=== PATIENT | female | born 1950 | race Caucasian/White ===

== ENCOUNTER 2018-05-21 18:14 | Observation (INO) | payer MEDICARE ==
[~2018-05-21] VITALS: Ht 154.9 cm; Wt 74.8 kg
[~2018-05-21 18:14] MED LIST: ALBUTEROL0.09 MG/A1 IH; CALCIUM CARBON500 M1 PO; CENTRUM SILVER1 TA1 PO; LEVEMIR SQ; METOPROLOL SUCC25 MG PO; MICARDIS 40MG40 MG PO; NOVOLOG100 U/ML IV; PLAQUENIL PO; SALSALATE PO; XALANTAN; ZOCOR80 MG PO
[2018-05-21 18:17] VITALS: BP 198/51; PULSE 77; TEMP 98.3
[2018-05-21] MEDS ORDERED: NOVOLOG FLEX100 U/ML SQ (18:24)
[2018-05-21] MEDS ORDERED: TESSALON P100 MG/CAP PO (18:25)
[2018-05-21] MEDS ORDERED: MIRALAX PA17 GM/Dose PO (18:26)
[2018-05-21] MEDS ORDERED: OCUVITE1 TA1 PO (18:26)
[2018-05-21] MEDS ORDERED: OMEGA-3 1000 MG1 CAP PO (18:27)
[2018-05-21] MEDS ORDERED: ASPERCREME1 EACH TP (18:27)
[2018-05-21] MEDS ORDERED: ANECREAM TOP (18:27)
[2018-05-21] MEDS ORDERED: TYLENOL 325MG325 MG PO (18:27)
[2018-05-21] MEDS ORDERED: RESTASIS MULTI5.5 ML OP (18:28)
[2018-05-21] MEDS ORDERED: PLAQUENIL 200M200 MG PO (18:28)
[2018-05-21] MEDS ORDERED: REFRESH TEARS 330 ML OP (18:28)
[2018-05-21] MEDS ORDERED: ASPIRIN 81M81 MG/TA2 PO (18:29)
[2018-05-21] MEDS ORDERED: VITAMIN E1000 U/CAP PO ×2 (18:29→18:30)
--- NOTE | 2018-05-21 18:30 | NUR ---
Pt arrived to medical from [facility]. Alert and oriented. States she had dialysis this morning and felt like her blood sugar was "low" and passed out. Per report from ED, blood sugar was actually elevated. Medications updated, pt unsure of some doses. Denies further needs. Will continue to monitor. IVET Quezada, notified of arrival.
--- NOTE | 2018-05-21 19:06 | NUR ---
Report given to ENOCH Kaplan. Pt resting in bed; Dr. Cardona at bedside.
[2018-05-21 20:26] VITALS: BP 181/57; PULSE 77; TEMP 97.9
--- NOTE | 2018-05-21 21:41 | NUR ---
Pt resting in bed, shift assessments complete, left Pt call light in reach, bed in lowest position.
[2018-05-21 22:06] LABS: PARTIAL THROMBOPLASTIN TIME 34.6 SECONDS (26.0-37.0)
[2018-05-22 00:12] VITALS: BP 140/53; PULSE 70; TEMP 97.6
[2018-05-22 04:38] VITALS: BP 162/67; PULSE 71; TEMP 97.9
[2018-05-22 07:13] LABS: BASO % 0.5 % (0.0-2.0); GRAN # 5.3 (1.4-6.5); GRAN % 82.6 % (42.2-75.2); LYMPH # 0.6 (1.2-3.4); LYMPH % 8.6 % (20.0-51.0); MEAN CELL VOLUME 100 fl (80.0-100.0); MEAN CORPUSCULAR HGB CONC 32 g/dl (33.0-37.0); MEAN PLATELET VOLUME 12.1 fl (7.4-10.4); MONO # 0.5 (0.1-0.6); MONO % 7.5 % (1.7-9.3); PLATELET COUNT 136 K/mm3 (130-400); RED BLOOD COUNT 2.97 M/mm3 (4.10-5.30); REDCELL DISTRIBUTION WIDTH-CV 16.4 % (11.5-14.5)
[2018-05-22 07:14] LABS: HEMATOCRIT 29.6 % (37.0-47.0); HEMOGLOBIN 9.6 g/dl (12.5-16.0); MEAN CORPUSCULAR HEMOGLOBIN 32 pg (27.0-31.0)
[2018-05-22 07:23] LABS: ALBUMIN 3.6 gm/dL (3.5-5.0); CALCIUM 8.1 mg/dL (8.4-10.2); POTASSIUM 4.1 mmol/L (3.4-5.0)
--- NOTE | 2018-05-22 07:23 | NUR ---
Pt slept well during the night, she has had no C/O pain during the shift. VS have been stable.
[2018-05-22 07:28] LABS: CREATININE, serum 5.1 mg/dL (0.52-1.25)
--- NOTE | 2018-05-22 08:45 | NUR ---
Patient taken to dialysis via wc. Heparin dose adjusted per hep xa resluts. Lab re-ordered for 1400.
[2018-05-22 12:40] VITALS: BP 153/70; PULSE 75; TEMP 97.9
--- NOTE | 2018-05-22 14:42 | NUR ---
RA SPO2 85% PLACED PT ON 1 LPM NC 93%
--- NOTE | 2018-05-22 15:24 | NUR ---
SW met with patient and to discuss discharge planning. Patient lives in [place] with her , Rolando. Patients PCP Is [facility] but also follows Dr Naveed Freitas in [place]. Patient is a retired teacher. She uses a walker for Ambulation. SW will continue to follow to assist in any discharge needs that may arise.
[2018-05-22 15:41] VITALS: BP 187/56; PULSE 80; TEMP 98.3
[2018-05-22 21:10] VITALS: BP 181/69; PULSE 83; TEMP 98.4
--- NOTE | 2018-05-22 21:33 | NUR ---
Pt resting in bed, has active blededing fron her fistula, reinforced with 2X2 gauze and paper applying traction to place presure on sites, shift assessment complete, no significant findings.
[2018-05-22 23:50] VITALS: BP 139/63; PULSE 86; TEMP 98.1
[2018-05-23 03:21] VITALS: BP 130/94; PULSE 85; TEMP 98.1
--- NOTE | 2018-05-23 05:23 | NUR ---
Pt bdid not sleep well during the night, her fistula was bleeding during the shift, applied 2X2 gauze and tape, applied traction with the tape to maintain pressure at the puncture site, after the midnight HEP Xa the infusion was reduced to 5.9ml/hr per protocol. No C/O pain, VS have remained stable during the shift.
[2018-05-23 06:38] LABS: MEAN CELL VOLUME 102 fl (80.0-100.0); MEAN CORPUSCULAR HGB CONC 32 g/dl (33.0-37.0); MEAN PLATELET VOLUME 12.3 fl (7.4-10.4); PLATELET COUNT 125 K/mm3 (130-400); RED BLOOD COUNT 2.63 M/mm3 (4.10-5.30); REDCELL DISTRIBUTION WIDTH-CV 16.7 % (11.5-14.5)
[2018-05-23 06:43] LABS: HEMATOCRIT 26.8 % (37.0-47.0); HEMOGLOBIN 8.5 g/dl (12.5-16.0); MEAN CORPUSCULAR HEMOGLOBIN 32 pg (27.0-31.0)
[2018-05-23 06:57] LABS: ALBUMIN 3.2 gm/dL (3.5-5.0); PHOSPHOROUS 3.9 mg/dL (2.5-4.5); POTASSIUM 4.2 mmol/L (3.4-5.0)
[2018-05-23 07:02] VITALS: BP 180/58; PULSE 84; TEMP 97.9
[2018-05-23 07:25] LABS: ANISOCYTOSIS 1+; BAND 4 % (0-10); BASOPHIL 1 % (0-2); LYMPHOCYTE 13 % (20.0-51.0); NEUTROPHILS 76 % (42.0-75.2); PLATELET ESTIMATE DECREASED (NORMAL)
[2018-05-23 07:35] LABS: CREATININE, serum 3.93 mg/dL (0.52-1.25)
--- NOTE | 2018-05-23 07:59 | NUR ---
AM HEP XA SUB THERAPEUTIC. HEPARIN GTT RATE INCREASED BY 1.5 ML/HR PER PROTOCOL. GTT NOW INFUSING AT 7.4ML/HR. NEXT HEP XA SCHEDULED FOR 1400.
--- NOTE | 2018-05-23 09:20 | NUR ---
PT TAKEN DOWN VIA WHEELCHAIR TO DIALYSIS ALONG WITH IV PUMP WITH HEPARIN GTT INFUSING AT 7.4ML/HR PER PROTOCOL.
[2018-05-23 11:50] VITALS: BP 122/62; PULSE 74; TEMP 97.9
--- NOTE | 2018-05-23 12:34 | NUR ---
PT STILL IN DIALYSIS
--- NOTE | 2018-05-23 14:37 | NUR ---
Pt returned from dialysis. Report received from ENOCH Thakkar. Denies furhter needs at this time; will continue to monitor.
--- NOTE | 2018-05-23 15:13 | NUR ---
HepXa elevated; Heparin gtt held for one hour and will decrease rate by 2 mL per protocol. Hep gtt will then infuse at 5.4 mL/hr.
[2018-05-23 15:34] VITALS: BP 182/69; PULSE 81; TEMP 98.7
--- NOTE | 2018-05-23 18:02 | NUR ---
Pt had uneventful afternoon. Resting in bed with call light within reach.
--- NOTE | 2018-05-23 18:40 | NUR ---
Report given to ENOCH Kaplan. Pt resting in bed.
[2018-05-23 19:35] VITALS: BP 170/55; PULSE 86
--- NOTE | 2018-05-23 20:42 | NUR ---
Pt resting in bed napping, no C/O pain, heparin drip running at 5.4ml/hr, shift assessment complete, left Pt call light in reach, bed in lowest position.
[2018-05-24 01:08] VITALS: BP 164/53; PULSE 82
[2018-05-24 04:45] VITALS: BP 150/56; PULSE 81; TEMP 98.5
--- NOTE | 2018-05-24 05:46 | NUR ---
Pt slept through the night, she has had no C/O pain, VS have been stable.
[2018-05-24 07:25] VITALS: BP 168/52; PULSE 80; TEMP 98.4
[2018-05-24 08:24] LABS: MEAN CELL VOLUME 102 fl (80.0-100.0); MEAN CORPUSCULAR HGB CONC 32 g/dl (33.0-37.0); MEAN PLATELET VOLUME 12.3 fl (7.4-10.4); PLATELET COUNT 129 K/mm3 (130-400); RED BLOOD COUNT 2.95 M/mm3 (4.10-5.30); REDCELL DISTRIBUTION WIDTH-CV 16.9 % (11.5-14.5)
[2018-05-24 08:32] LABS: ALBUMIN 3.5 gm/dL (3.5-5.0); CALCIUM 8.4 mg/dL (8.4-10.2); HEMATOCRIT 30.1 % (37.0-47.0); HEMOGLOBIN 9.6 g/dl (12.5-16.0); MEAN CORPUSCULAR HEMOGLOBIN 33 pg (27.0-31.0); PHOSPHOROUS 2.1 mg/dL (2.5-4.5); POTASSIUM 3.9 mmol/L (3.4-5.0)
[2018-05-24 08:35] LABS: CREATININE, serum 4.13 mg/dL (0.52-1.25)
[2018-05-24 08:49] LABS: BAND 3 % (0-10); LYMPHOCYTE 22 % (20.0-51.0); NEUTROPHILS 67 % (42.0-75.2)
[2018-05-24 08:50] LABS: ANISOCYTOSIS 1+; PLATELET ESTIMATE DECREASED (NORMAL)
--- NOTE | 2018-05-24 09:38 | NUR ---
Pt resting in bed. Heparin gtt DC'd per orders. INT intact to right AC. Potential discharge this afternoon. Denies further needs at this time; will continue to monitor.
[2018-05-24] MEDS ORDERED: NORVASC 5MG5 MG/TAB PO (11:59)
[2018-05-24] MEDS ORDERED: COZAAR 25MG25 MG/TAB PO (11:59)
[2018-05-24 12:18] VITALS: BP 134/85; PULSE 78; TEMP 98.1
--- NOTE | 2018-05-24 12:56 | NUR ---
Patient dc home today with spouse support. No unmet discharge needs.
[2018-05-24 15:41] VITALS: BP 151/48; PULSE 75; TEMP 97.5
--- NOTE | 2018-05-24 16:50 | NUR ---
Reviewed all discharge medications, instructions and follow up appointments in depth with patient. All questions answered in depth. INT removed from right AC. Tele removed. Waiting for her to come pick her up.
--- NOTE | 2018-05-24 16:52 | NUR ---
Reviewed importance of filling medications tonight so she can take them through the weekend. Pt verbalizes understanding, states she will be able to pick them up.
--- NOTE | 2018-05-24 17:41 | NUR ---
Pt's arrives; all belongings and paperwork gathered. INT previously removed, discharge instructions reviewed.
== END 2018-05-24 17:41 | disposition home or self-care (01) ==
LOC: MEDICAL 18:14
PROVIDERS: Internal Medicine Nephrology; Nurse Practitioner; ADMIT Internal Medicine
DX: R55 Syncope and collapse (principal); R09.02 Hypoxemia; E87.70 Fluid overload, unspecified; J91.8 Pleural effusion in other conditions classified elsewhere; J12.3 Human metapneumovirus pneumonia; B97.81 Human metapneumovirus as the cause of diseases classified elsewhere; E11.22 Type 2 diabetes mellitus with diabetic chronic kidney disease; E11.65 Type 2 diabetes mellitus with hyperglycemia; I12.0 Hypertensive chronic kidney disease with stage 5 chronic kidney disease or end stage renal disease; I21.A1 Myocardial infarction type 2; N18.6 End stage renal disease; Z99.2 Dependence on renal dialysis; Z79.4 Long term (current) use of insulin; Z91.19 Patient's noncompliance with other medical treatment and regimen; M06.9 Rheumatoid arthritis, unspecified; Z85.41 Personal history of malignant neoplasm of cervix uteri; Z85.44 Personal history of malignant neoplasm of other female genital organs; Z79.82 Long term (current) use of aspirin; Z79.899 Other long term (current) drug therapy; Z90.79 Acquired absence of other genital organ(s); I08.1 Rheumatic disorders of both mitral and tricuspid valves; J06.9 Acute upper respiratory infection, unspecified; J90 Pleural effusion, not elsewhere classified
CPT/HCPCS: OP; G0378; G0379; J1644; J1815